=== PATIENT | female | born 1945 | race Caucasian/White ===

== ENCOUNTER 2025-09-28 06:07 | Inpatient (IN) | payer OTHER, SELFPAY ==
[2025-09-17 12:33] LABS: ALT (SGPT) 19 U/L (0-35); AST (SGOT) 21 U/L (14-36); Albumin 3.7 g/dl (3.5-5.0); Alkaline Phosphatase 63 U/L (38-126); Blood Urea Nitrogen 15 mg/dl (7-17); Calcium 8.5 mg/dl (8.4-10.2); Carbon Dioxide 24 mmol/L (22-30); Chloride 103 mmol/L (98-107); Glucose 138 mg/dl (70-99); Potassium 4.7 mmol/L (3.5-5.1); Sodium 133 mmol/L (135-145); Total Protein 6.2 g/dl (6.3-8.2); eGFR > 60.00
[2025-09-17 12:37] LABS: INR 1.26; PT 16.1 Sec (11.4-14.6)
[2025-09-17 13:12] LABS: Hematocrit 31.2 % (37.0-47.0); Hemoglobin 9.2 g/dL (12.0-16.0); Mean Corp Hgb Conc. 29.5 g/dL (33.0-37.0); Mean Corpuscular Volume 77.2 fL (81.0-99.0); Nucleated Red Blood Cells % 0.8 %; Platelet Count 239 10^3/uL (130-400); Red Cell Dist. Width 19.6 % (11.5-14.5)
[2025-09-17 13:47] VITALS: BMI 34.3
[2025-09-28] VITALS (21 sets, daily range): BP systolic 124–170; BP diastolic 54–103; BMI 34.1
[2025-09-28 06:54] LABS: Glucose - Point of Care 78 mg/dl (70-99)
[2025-09-28 09:03] LABS: ACT-LR - POC 221 Seconds (116-155)
[2025-09-28 10:01] LABS: Glucose - Point of Care 123 mg/dl (70-99)
--- NOTE | 2025-09-28 10:10 | WATCHMAN.MD ---
Watchman Implant
-
WATCHMAN LEFT ATRIAL APPENDAGE CLOSURE DEVICE REPORT
Date: September 28, 2025
Referring [employer] Teacher: Dr. Maria G Sun
Primary Care Provider: Dr. Rubin Dozier
History:
Permanent atrial fibrillation s/p multiple PVIs, COTTON FARMWORKER pacemaker, AV phan ablation,diastolic HF, HTN, DM, CVA� 01/2019 and 05/2025, epistaxis on Eliquis requiring hospitalization 11/2024.
She had a CVA in May 2025 with acute/subacute infarction of the right basal ganglia. She was switched from Eliquis to Pradaxa at that time.�
GI bleeds 06/2025 managed at [facility] and anticoagulation regimen switched from Pradaxa to Lovenox.
Given her elevated thromboembolic risk related to atrial fibrillation and risk of recurrent serious GI bleeding as well as epistaxis intolerant of oral anticoagulation regimens and still at high bleeding risk with Lovenox, she presents for left
atrial appendage exclusion to reduce her long-term exposure to oral anticoagulation.
Watchman Team:
BARBIE: Dr. Vasiliy Mckeon M.D.
Implanter: Dr. Rubin Taylor M.D.
Procedure: Watchman left atrial appendage closure.
The patient was placed under general anesthesia by anesthesia.
A BARBIE probe was placed.
Ultrasound Guidance with real-time visualization of needle insertion and vessel patency performed by wa for femoral venous Vascular Access.
Under real-time US guidance, the needle was advanced with negative pressure into the vein. The needle was seen entering the vessel lumen with a good return of dark red flow, the syringe was removed, non-pulsatile, dark red blood low was noted and
the wire was passed without difficulty, then the needle was removed. US confirmed the wire was in the vein, not going into an artery,
Images were taken and saved for the patient's permanent record. Imaging findings typical femoral venous anatomy. Direct visualization of needle puncture into the femoral vein was observed and recorded.
A 10 Fr sheath was placed in the right femoral vein for ICE.
A 10 Czech sheath was initially placed and then upsized to allow access for the 14 Czech watchman sheath
MIKEY type: Chicken wing
Heparin was administered to goal ACT 350-400 seconds. Fluid bolus was given.
Dr Rubin Taylor performed intracardiac echocardiogram and also positioned and deployed the Watchman device.
Intracardiac ultrasound catheter was placed in the right atrium identifying the intraatrial septum for transseptal puncture.
Transseptal puncture entailed advancing a sheath with dilator into the superior vena cava and withdrawing both (monitoring intracardiac ultrasound, fluoroscopy and tip pressure) with the tip oriented toward the atrial septum. The fossa ovalis was
engaged (indicated by sudden displacement of the sheath tip as well as tenting of the fossa seen on intracardiac ultrasound). GoFish transseptal system was used. Left atrial catheter position was confirmed by echocardiographic imaging, pressure
monitoring (LA mean pressure 12 mm Hg) and fluoroscopy. The sheath was advanced over the dilator and positioned in the left atrium.
A 5 Czech curved pigtail was then substituted for the guidewire through the watchman sheath to the ostium of the left atrial appendage. The 5 Czech pigtail was advanced into the left atrial appendage and angiography was performed. This allowed
additional measurements assessing left atrial appendage ostium size and MIKEY morphology.
The pigtail catheter was removed from the access sheath. A 27 mm Watchman device was flushed and then placed into the watchman access sheath and advanced through the sheath. The Watchman was clamped into the sheath. The device was deployed into
the left atrial appendage.
The PASS criteria were met. The stability tug test was performed and passed. Angiography and transesophageal echocardiogram revealed no leaks nor jets. The position was confirmed on angiography and transesophageal echo and there were no
significant shoulders. Compression ranges from 15 % to 22 %.
After meeting the PASS release criteria the device was released into the left atrial appendage.
The watchman access sheath was then removed through the transseptal into the IVC. A figure 8 suture closure was performed at the site of the femoral venous puncture and the sheath as it was removed.
Impression:
- Intracardiac echocardiogram
- Successful Deployment 27 mm WATCHMAN left atrial appendage closure device.
- Ultrasound guidance for vascular access
Recommended anticoagulation strategy for this specific patient is complicated due to prior significant bleeding events with direct oral anticoagulants but ability to tolerate Lovenox.
Will plan to continue Lovenox, assess transesophageal echo in 45 days and if there is no significant NESHA device leak or device related thrombus would then stop Lovenox and initiate DAPT to complete 6 months, then asa 81 mg daily
At post procedure BARBIE leaks > 5mm are significant and require chronic full anticoagulation or consideration for leak closure.
Nesha-device leaks between 3 and 5 mm may also carry an increased risk. These patients will need individualized risk assessment and discussion with Watchman team.
Leaks < 3 mm are generally considered non-significant.
With leak of any size suggestion is to check BARBIE 12 mo out from implant.
While the overall risk of device related infection for Watchman device is very low, we recommend SBE prophylaxis with amoxicillin for the first 6 months after device implantation until the device is more completely endothelialized. After the first
6 months, the risk of infection associated with a device is further reduced and routine antibiotic prophylaxis is not mandatory but can be decided on an individual case basis.
Continue cardiovascular care with Dr. Maria G Sun
cc:
Referring [employer] Teacher: Dr. Maria G Sun
Primary Care Provider: Dr. Rubin Dozier
--- NOTE | 2025-09-28 10:30 | PTCARENOTE ---
pt received post laborer concrete paving for watchman procedure. right groin site with figure eight suture, intact. pulses easily palpable. trace lower extremity edema. pt on room air, sat 97%. lung sound clear, diminished in bases. active bowel sounds, round
obese abdomen. denies urge to void at this time. pt with insulin pump and dexcom in place. pt educated on bedrest at this time. pt updated on plan of care. family brought to bedside. see worklist for full nursing assessment and interventions.
[2025-09-28 11:51] LABS: Glucose - Point of Care 135 mg/dl (70-99)
[2025-09-28] MEDS: PATIENT'S OWN INSULIN PUMP 17.23 UNITS SC (11:51)
[2025-09-28] MEDS: VIBRAMYCIN 200 MG PO (11:52)
[2025-09-28] MEDS: TYLENOL 650 MG PO (11:54)
--- NOTE | 2025-09-28 15:26 | PTCARENOTE ---
pt OOB to chair with 1 assist and rolling walker. ambulated to bathroom to void. right groin site CDI. no changes in assessment noted.
--- NOTE | 2025-09-28 15:40 | CM ---
Chart reviewed. Patient is independent of ADLS, lives with his son and DIl in a 1 STH, 2 PHYLLIS, 0 DME. Plan is for the patient to return home. CM to follow
[2025-09-28 16:42] LABS: Glucose - Point of Care 253 mg/dl (70-99)
[2025-09-28] MEDS: LOVENOX 100 MG SC (16:42)
[2025-09-28] MEDS: PATIENT'S OWN INSULIN PUMP 35 UNITS SC (17:16)
[2025-09-28] MEDS: BENTYL 20 MG PO (18:35)
[2025-09-28] MEDS: PEPCID 40 MG PO (19:30)
[2025-09-28] MEDS: BUSPAR 30 MG PO (19:30)
[2025-09-28] MEDS: COREG 6.25 MG PO (19:30)
[2025-09-28] MEDS: COZAAR 50 MG PO (19:31)
[2025-09-28 19:40] LABS: Glucose - Point of Care 330 mg/dl (70-99)
[2025-09-28 20:41] LABS: Glucose - Point of Care 356 mg/dl (70-99)
[2025-09-28 21:51] LABS: Glucose - Point of Care 318 mg/dl (70-99)
[2025-09-28] MEDS: NOVOLOG FLEXPEN 10 UNITS SC (22:36)
[2025-09-28] MEDS: ARICEPT 10 MG PO (22:36)
[2025-09-28] MEDS: LIPITOR 40 MG PO (22:36)
[2025-09-28] MEDS: XANAX 0.5 MG PO (22:36)
[2025-09-28 22:37] LABS: Glucose - Point of Care 277 mg/dl (70-99)
[2025-09-29 00:21] LABS: Glucose - Point of Care 194 mg/dl (70-99)
--- NOTE | 2025-09-29 03:00 | PTCARENOTE ---
Pt rec'd at change of shift. BP elevated in the 160's, cardiac medications given as ordered. PT AAO*3 (but forgetful at times), VSS, and Vpaced on tele monitor. Pt glucometer reads high, hospital AccuCheck reads as follows 330, 356, and 318. Pt
given updated on potentially having to remove insulin pump and reason. CT PA and house provider given update regard blood surgar elevation. When RN returned to room pt was holding insulin pump that was completely disconnected from pt. Pt educated
to prevent future medical interventions in future, pt verbalized understanding and apologized. DANNY Garcia notified about removed insulin pump and rec'd order for 10 units of insulin via flex pen.
R groin CDI with minimal scant drainage maintained under dressing and only female staff complete groin checks as pt requested. Pt now resting with call ch in reach. See MAR and flowchart for full pt care and assessment.
[2025-09-29 05:16] VITALS: BP 161/89
[2025-09-29 05:17] VITALS: BP 161/89
[2025-09-29] MEDS: LOVENOX 100 MG SC (05:20)
[2025-09-29] MEDS: SYNTHROID 50 MCG PO (05:21)
[2025-09-29 05:50] LABS: Hematocrit 31.0 % (37.0-47.0); Hemoglobin 8.8 g/dL (12.0-16.0); Mean Corp Hgb Conc. 28.4 g/dL (33.0-37.0); Mean Corpuscular Volume 76.5 fL (81.0-99.0); Platelet Count 339 10^3/uL (130-400); Red Cell Dist. Width 20.1 % (11.5-14.5)
[2025-09-29 06:11] LABS: Blood Urea Nitrogen 14 mg/dl (7-17); Calcium 8.9 mg/dl (8.4-10.2); Carbon Dioxide 22 mmol/L (22-30); Chloride 103 mmol/L (98-107); Estimated Creatinine Clearance 73 ml/min; Glucose 150 mg/dl (70-99); Magnesium 2.0 mg/dl (1.6-2.3); Potassium 5.4 mmol/L (3.5-5.1); Sodium 131 mmol/L (135-145); eGFR > 60.00
[2025-09-29 08:04] VITALS: BP 164/83
[2025-09-29 08:54] LABS: Glucose - Point of Care 167 mg/dl (70-99)
[2025-09-29] MEDS: BENTYL 20 MG PO (08:54)
[2025-09-29] MEDS: CYMBALTA DELAYED RELEASE 60 MG PO (08:55)
[2025-09-29] MEDS: COZAAR 50 MG PO (08:55)
[2025-09-29] MEDS: KCL 10 MEQ PO (08:55)
[2025-09-29] MEDS: MAGNESIUM OXIDE 400 MG PO (08:55)
[2025-09-29] MEDS: PEPCID 40 MG PO (08:56)
[2025-09-29] MEDS: PROTONIX 40 MG PO (08:56)
[2025-09-29] MEDS: ZOFRAN 4 MG PO (08:56)
[2025-09-29] MEDS: LASIX 20 MG PO (08:56)
[2025-09-29] MEDS: COREG 6.25 MG PO (08:57)
[2025-09-29] MEDS: BUSPAR 30 MG PO (08:57)
[2025-09-29] MEDS: COLACE 100 MG PO (08:57)
[2025-09-29] MEDS: FARXIGA 10 MG PO (08:57)
[2025-09-29] MEDS: FLUSH (NSS) 1 FLUSH IV (08:58)
--- NOTE | 2025-09-29 09:06 | W.PN.CARDCBS ---
Addendum entered and electronically signed by John Hernandez MD 09/29/25 09:41:
Patient seen and examined
Agree with PRODUCE SORTER note and assessment
Agree with PRODUCE SORTER plan
Exam:
Alert and x 3
Nonfocal neurologically
JVP 6
Right groin clean dry intact without hematoma or bruit
Cor irregularly irregular
Lungs clear to auscultation bilaterally
Abdomen soft nontender positive bowel sounds
No extremity edema
Impression:
Permanent Afib s/p multiple PVI's
AV phan ablation 2019
Chronic HFpEF 55-60%
SSS s/p BiV PPM 2018
CVA 2019 off OAC and 05/2025 on Eliquis switched to Pradaxa
c/b GIB/diverticulitis with perforation requiring resection switched Pradaxa to Lovenox
Partial thyroidectomy 2018 c/b bleeding and epistaxis
Insulin dependent DM on insulin pump
HTN
Anxiety
Plan:
post Watchman device implant 09/28/25
noted intraprocedurally to have tick bite right chest, tick removed under sterile technique.
ID contacted and doxycycline 200mg given per their recommendations, no bulls eye rash noted, will f/u with PCP
OAC Lovenox continue until f/u BARBIE
Insulin pump came off last night, BG 150 this am, will cover with 10u AC, prefers for her son to replace when she gets home
Diastolic HF continue carvedilol 6.25, losartan 50mg, Jardiance, and Lasix
Activity restrictions reviewed
f/u BARBIE 1 mo
continue cardiac care with Dr. Sun
Original Note:
Today's Communication / Plan
-
post Watchman, stable for d/c home
treated with doxycycline for tick bite (L chest)
instructed to f/u PCP if rash develops at site
Insulin pump came off last night, will have family replace at home, SC coverage while in hospital
Impression / Plan
-
Referring Robot Programmer: Dr. Maria G Sun
Primary Care Provider: Dr. Rubin Dozier
Impression:
Permanent Afib s/p multiple PVI's
AV phan ablation 2019
Chronic HFpEF 55-60%
SSS s/p BiV PPM 2018
CVA 2019 off OAC and 05/2025 on Eliquis switched to Pradaxa
c/b GIB/diverticulitis with perforation requiring resection switched Pradaxa to Lovenox
Partial thyroidectomy 2018 c/b bleeding and epistaxis
Insulin dependent DM on insulin pump
HTN
Anxiety
Plan:
post Watchman device implant 09/28/25
noted intraprocedurally to have tick bite right chest, tick removed under sterile technique.
ID contacted and doxycycline 200mg given per their recommendations, no bulls eye rash noted, will f/u with PCP
groin stable
OAC Lovenox continue until f/u BARBIE
Insulin pump came off last night, BG 150 this am, will cover with 10u AC, prefers for her son to replace when she gets home
Diastolic HF continue carvedilol 6.25, losartan 50mg, Jardiance, and Lasix
Activity restrictions reviewed
f/u BARBIE 1 mo
continue cardiac care with Dr. Sun
Progress Note - Robot Programmer
Subjective
Date of Service: September 29, 2025
denies cp, sob
Objective
Labs:
09/29/25 05:30
09/29/25 05:30
Labs
Hgb 8.8 g/dL (12.0-16.0) L 09/29/25 05:30
Hct 31.0 % (37.0-47.0) L 09/29/25 05:30
Plt Count 339 10^3/uL (130-400) 09/29/25 05:30
PT 16.1 Sec (11.4-14.6) H 09/17/25 11:25
INR 1.26 09/17/25 11:25
Sodium 131 mmol/L (135-145) L 09/29/25 05:30
Potassium 5.4 mmol/L (3.5-5.1) H 09/29/25 05:30
BUN 14 mg/dl (7-17) 09/29/25 05:30
Creatinine 0.7 mg/dL (0.6-1.0) 09/29/25 05:30
Glucose 150 mg/dl (70-99) H 09/29/25 05:30
Vital Signs and I&O:
Vital Signs
Temp Pulse Resp BP Pulse Ox
98.8 F 70 20 164/83 99
09/29/25 08:12 09/29/25 08:04 09/29/25 08:12 09/29/25 08:04 09/29/25 08:12
Vital Signs
Temp Pulse Resp BP Pulse Ox
98.8 F 70 20 164/83 99
09/29/25 08:12 09/29/25 08:04 09/29/25 08:12 09/29/25 08:04 09/29/25 08:12
Intake & Output
09/27/25 09/28/25 09/29/25 09/30/25
05:59 06:59 06:59 06:59
Intake Total 1440 / 1440
Balance 1440 / 1440
Physical Exam
Physical Exam
NAD, AOX3
S1, S2, irreg irreg
CTAB, non labored, no wheeze
SNTND bsx4
R groin c/d/i no HT, soft
L chest with small erythematous site with scabbing, no bull's eye rash noted at site
[2025-09-29 09:09] LABS: Glycohemoglobin (HgbA1c) 7.4 % (4.0-5.9)
--- NOTE | 2025-09-29 09:56 | PTCARENOTE ---
Patient assisted oob to the chair this morning. Right groin dressing is dry and intact. Insulin pump was discontinued last night, accu check 167 this morning, will give novolog dose with breakfast as ordered. Call ch in reach, calling for
assistance when getting oob.
[2025-09-29] MEDS: NOVOLOG FLEXPEN 10 UNITS SC (10:10)
[2025-09-29 11:27] VITALS: BP 115/84
--- NOTE | 2025-09-29 11:29 | W.DS.TRANS ---
DC Summary - Web Site Manager
-
Discharge Instructions:
Sleep Apnea Risk High
Discharge Diagnosis/Procedures Watchman device implant
Diet Low Cholesterol,Diabetic, Carb Controlled
Driving Restrictions No driving for 24 hours
Others Tests Follow Up BARBIE is scheduled at [facility] on 11/16/[address] Fernandez. Pre-
admission testing is scheduled for 11/11/2025 at
10am at [facility].
Instructions:
Stand-Alone Forms: DC Instructions- Cath/EP Lab
Changes to Home Medications: No
Discharge Medications:
DC Medications w/original date entered in [facility]
Insulin Pump [Patient's Own Insulin Pump:] 1 unit SC TITRATE Diabetes 11/21/19
atorvastatin 40 mg tablet (Lipitor) 40 mg PO HS High Cholesterol 11/21/19
dicyclomine 10 mg capsule 20 mg PO BID Gastrointestinal Issue 11/21/19
famotidine 40 mg tablet (Pepcid) 40 mg PO BID Gastrointestinal Issue 11/21/19
wkatniqmvfze-rdtymrxz-kynof acid 400 mcg-vitamin K 80 mcg capsule (Multi For Her 50 Plus) 1 ea PO DAILY Supplement 01/01/20
donepezil 10 mg tablet (Aricept) 10 mg PO HS Neurological Condition 04/10/23
magnesium oxide 400 mg PO DAILY Supplement 04/10/23
epinephrine 0.3 mg/0.3 mL injection, auto-injector (EpiPen) 0.3 mg IM ONCE PRN bee 05/10/23
empagliflozin 10 mg tablet (Jardiance) 10 mg PO DAILY Diabetes 05/11/23
potassium chloride 10 mEq tablet,extended release 10 meq PO Q48H Electrolyte Repletion 05/11/23
buspirone 30 mg tablet 30 mg PO BID Depression 05/26/23
levothyroxine 50 mcg tablet 50 mcg PO DAILY@0700 Thyroid 05/26/23
alprazolam 1 mg tablet 0.5 mg (1/2 x 1 mg) PO HS Sleep #3 tabs 06/02/23
diphenoxylate-atropine 2.5 mg-0.025 mg tablet (Lomotil) 1 tab PO PRN PRN diarrhea 08/23/23
acetaminophen 500 mg tablet (Pain Relief Extra Strength (acetaminophen)) 1,000 mg PO PRN PRN Pain 09/16/25
ascorbate calcium (vitamin C) 500 mg tablet 1 g PO DAILY Supplement 09/16/25
carvedilol 6.25 mg tablet (Coreg) 6.25 mg PO BID Heart Disease/Condition 09/16/25
docusate sodium 100 mg capsule (Colace) 100 mg PO DAILY Constipation 09/16/25
duloxetine 60 mg capsule,delayed release 60 mg PO DAILY Mental Health/Anxiety 09/16/25
furosemide 20 mg tablet 20 mg PO Q48H Heart Disease/Condition 09/16/25
hydrocortisone 2.5 % topical cream 1 applic topical PRN PRN Rectal Irritation 09/16/25
insulin lispro 100 unit/mL subcutaneous cartridge (Humalog U-100 Insulin) 1 sliding scale dose SC DIRECTED Pump 09/16/25
losartan 50 mg tablet 50 mg PO BID Heart Disease/Condition 09/16/25
ondansetron HCl 4 mg tablet 4 mg PO DAILY Nausea 09/16/25
pantoprazole 40 mg tablet,delayed release 40 mg PO DAILY Gastrointestinal Issue 09/16/25
polyethylene glycol 3350 17 gram oral powder packet (Miralax) 17 g PO DAILY PRN constipation 09/16/25
enoxaparin 100 mg/mL subcutaneous syringe (Lovenox) 100 mg SC Q12H Blood Clot Prevention/Tx 09/28/25
Home Medication Changes
Pending Results: No
--- NOTE | 2025-09-29 12:55 | PTCARENOTE ---
Reviewed discharge instructions and follow up appointments with the patient's [id number] who she lives with. Patient's son will set her insulin pump for lunch when she comes home and program it. Patient discharged home.
== END 2025-09-29 12:57 | disposition home or self-care (01) | DRG 274 ==
LOC: IVU 06:07
PROVIDERS: Internal Medicine; Nurse Practitioner; ADMITTING PHYSICIAN Internal Medicine Cardiovascular Disease; FAMILY PHYSICIAN Family Medicine
PROC: 02L73DK Occlusion of Left Atrial Appendage with Intraluminal Device, Percutaneous Approach (ICD-10-PCS; 2025-09-28)
PROC: B24BZZ4 Ultrasonography of Heart with Aorta, Transesophageal (ICD-10-PCS; 2025-09-28)
DX: I48.21 Permanent atrial fibrillation (principal); Z00.6 Encounter for examination for normal comparison and control in clinical research program; I50.32 Chronic diastolic (congestive) heart failure; K21.9 Gastro-esophageal reflux disease without esophagitis; M19.90 Unspecified osteoarthritis, unspecified site; M48.00 Spinal stenosis, site unspecified; M79.7 Fibromyalgia; E11.42 Type 2 diabetes mellitus with diabetic polyneuropathy; R26.2 Difficulty in walking, not elsewhere classified; I11.0 Hypertensive heart disease with heart failure; D50.9 Iron deficiency anemia, unspecified; K58.9 Irritable bowel syndrome, unspecified; E78.5 Hyperlipidemia, unspecified; I07.1 Rheumatic tricuspid insufficiency; F32.A Depression, unspecified; F41.9 Anxiety disorder, unspecified; E89.0 Postprocedural hypothyroidism; H40.9 Unspecified glaucoma; G47.00 Insomnia, unspecified; S20.361A Insect bite (nonvenomous) of right front wall of thorax, initial encounter; W57.XXXA Bitten or stung by nonvenomous insect and other nonvenomous arthropods, initial encounter; Y93.9 Activity, unspecified; Y92.9 Unspecified place or not applicable; Z96.41 Presence of insulin pump (external) (internal); Z79.890 Hormone replacement therapy; Z91.81 History of falling; Z87.440 Personal history of urinary (tract) infections; Z79.4 Long term (current) use of insulin; Z95.0 Presence of cardiac pacemaker; Z87.891 Personal history of nicotine dependence; Z79.84 Long term (current) use of oral hypoglycemic drugs; Z86.73 Personal history of transient ischemic attack (TIA), and cerebral infarction without residual deficits; Z79.01 Long term (current) use of anticoagulants; Z86.0101 Personal history of adenomatous and serrated colon polyps; Z87.19 Personal history of other diseases of the digestive system; Z86.19 Personal history of other infectious and parasitic diseases; Z88.1 Allergy status to other antibiotic agents; Z91.030 Bee allergy status; Z91.040 Latex allergy status; Z88.5 Allergy status to narcotic agent; Z88.8 Allergy status to other drugs, medicaments and biological substances; Z91.048 Other nonmedicinal substance allergy status
CPT/HCPCS: 33340; 36415; 80048; 80053; 82962; 83036; 83735; 85025; 85027; 85347; 85610; 86850; 86900; 86901; 87070; 87147; 93005; 93355; C1759; C1769; C1892; C1894; Q9967

== ENCOUNTER 2025-11-16 07:00 | Day surgery (SDC) | payer OTHER, SELFPAY ==
--- NOTE | 2025-11-12 12:17 | HPS.HSE ---
Family Physician
-
Family Physician: Rubin Dozier
Chief Complaint
-
Permanent atrial fibrillation. Watchman implant.
History of Present Illness
The patient is a 80 year old female presenting today with a history of permanent atrial fibrillation. The patient has undergone multiple pulmonary vein isolations and an AV phan ablation secondary to this diagnosis. She is on current
pharmacological therapy with Carvedilol. She does report compliance with Lovenox for current anticoagulation. She has a history of epistaxis and a prior CVA in 2019 while off oral anticoagulation. Of recent, she suffered another CVA in May 2025
while on Eliquis. At that time, she was changed to Pradaxa. While on Pradaxa, she began to notice bright red blood per rectum. She was admitted to [facility] multiple times due to recurrent GI bleeding with a diverticular
perforation, resulting in significant acute blood loss anemia. She received a total of 6 units of packed RBCs as well as IV iron. She was ultimately switched from Pradaxa to Lovenox which she remains on today. In addition, she is noted to have
significant ambulatory dysfunction as a result of her CVAs, osteoarthritis, fibromyalgia, orthostasis and spinal stenosis, all of which put her at an increased risk of falls. She currently ambulates with a rollator. Her [id number] score is 8
secondary to age, gender, heart failure, hypertension, stroke, and diabetes. Her HAS-BLED score is 4 secondary to hypertension, stroke, bleeding, and age. Given her significant risk of stroke as well as bleeding, she did undergo a Watchman implant
on 09/28/2025. She reportedly tolerated this procedure well. She will now undergo a post-Watchman transesophageal echocardiogram to assess the stability of her device. She denies complaints today such as chest pain, palpitations, nausea, vomiting,
diarrhea, lightheadedness, cough, sore throat, or fever. She does report shortness of breath, mostly with exertion, secondary to recent deconditioning and her anemia. She also reports recent, fleeting dizziness associated with her history of
orthostasis.
Medical History
Past Medical History
Past Medical History: Reports Other
Additional Past Medical History:
1. Permanent atrial fibrillation, status post multiple pulmonary vein isolations, AV phan ablation 2019, and Watchman implant 09/2025; pharmacological therapy with Carvedilol and anticoagulation with Lovenox.
2. Hypertension.
3. Hyperlipidemia.
4. Congestive heart failure, preserved ejection fraction.
5. Sick sinus syndrome, status post biventricular ENTERPRISE SOFTWARE ENGINEER pacemaker 2018.
6. Moderate-severe tricuspid regurgitation.
7. Orthostasis.
8. 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
9. GERD.
10. History of H. pylori.
11. Irritable bowel.
12. Colonic polyps.
13. Recurrent GI bleed with recent diverticular perf.
14. CVA, 2018, while off anticoagulation.
15. CVA, 05/2025, with residual deficits while on Eliquis.
16. History of TIAs.
17. Degenerative disc disease with stenosis.
18. Sciatica.
19. Osteoarthritis.
20. Ambulatory dysfunction.
21. Fibromyalgia.
22. Post-surgical hypothyroidism.
23. Iron deficiency anemia.
24. History of ESBL UTIs.
25. Anxiety.
26. Depression.
27. Glaucoma.
28. Insomnia.
29. Previous epistaxis.
30. Obesity, BMI 36.1.
31. History of tobacco abuse.
32. History of alcohol abuse.
Past Surgical History: Reports Other
Additional Past Surgical History:
1. Watchman implant.
2. Multiple pulmonary vein isolations.
3. AV phan ablation.
4. Biventricular ENTERPRISE SOFTWARE ENGINEER pacemaker.
5. Partial thyroidectomy.
6. Sigmoid resection with colostomy and subsequent reversal.
7. Carpal tunnel release.
8. Cataract extraction.
Social History
Tobacco: Former Smoker (She is a former less than 1 pack per day cigarette smoker who quit tobacco altogether at 32 years of age. )
Alcohol: None (Per reports, she has a prior history of alcohol abuse. )
Living: Other (She lives in a ranch style home with her son and daughter in law. )
Family History
Family History: Not pertinent
Allergies / Home Medications
Allergy/Medication List:
HOME MEDICATIONS:
1. Alprazolam 0.5 mg p.o. at bedtime.
2. Lipitor 40 mg p.o. at bedtime.
3. Buspirone 30 mg p.o. twice a day.
4. Coreg 6.25 mg p.o. twice a day.
5. Dicyclomine 20 mg p.o. twice a day.
6. Lomotil one tablet p.o. daily as needed.
7. Aricept 10 mg p.o. at bedtime.
8. Colace 100 mg p.o. daily.
9. Duloxetine 60 mg p.o. daily.
10. Lovenox 100 mg subcutaneous every 12 hours.
11. Pepcid 40 mg p.o. twice a day.
12. Furosemide 20 mg p.o. every other day.
13. Insulin pump indwelling subcutaneous.
14. Jardiance 10 mg p.o. daily.
15. Levothyroxine 50 mcg p.o. daily.
16. Losartan 50 mg p.o. twice a day.
17. Magnesium oxide 400 mg p.o. daily.
18. Ondansetron 4 mg p.o. daily.
19. Pantoprazole 40 mg p.o. daily.
20. MiraLAX 17 gm daily p.o. daily as needed.
21. Potassium chloride 10 mEq p.o. every other day.
22. Acetaminophen 1000 mg p.o. daily as needed.
23. Ascorbic acid 1 gram p.o. daily.
24. EpiPen 0.3 mg intramuscular once as needed.
25. Latanoprost 1 drop ophthalmic every evening.
26. Multivitamin 1 tablet p.o. daily.
ALLERGIES: Adhesive. Bee venom. Cephalosporins. Codeine. Latex. Lorazepam. Zoloft. KETEK. Tramadol. Hydrocodone. Hydromorphone.
Review of Systems
-
A 12 point ROS was completed and negative except as noted: Yes
Physical Exam
Vital Signs
Blood pressure 108/53. Heart rate 73. Respirations 18. Pulse ox 98% on room air.
Height 5 feet, 3.5 inches. Weight 93.9 kg. BMI 36.1.
Physical Exam
General: Well Developed, Well Nourished and No Apparent Distress
HEENT: NormoCephalic, Moist mucous membranes, Atraumatic and PERRLA
Respiratory: Clear
Cardiac: Irregular Rhythm and Other (Pacemaker site intact. )
GI: Soft, Non Tender, Non Distended and Other (Obese. )
Musculoskeletal: No Edema and Other (The patient walks with a rollator. )
Skin: Warm and Dry
Neuro: AO x 3 and Nonfocal/grossly intact
Laboratory Results
-
EKG 11/12/2025: Ventricular paced rhythm.
Transesophageal echocardiogram 09/28/2025: S/p deployment of #27 Watchman device. The PASS criteria were met. The stability tug test was performed and passed. Transesophageal echocardiogram revealed no leaks nor jets. Compression ranges from 15-22
%. Small pericardial effusion was present pre-op and stable post-op. Estimated LVEF 55-60%. Moderate-severe tricuspid regurgitation.
Impression/Plan
-
IMPRESSION/PLAN:
1. Permanent atrial fibrillation and Watchman implant: The patient is in need of a transesophageal echocardiogram with Dr. Adonis Fernandez on 11/16/2025. The benefits and risks of the procedure have been explained to the patient. The patient understands
these risks and wishes to proceed. Should her Watchman implant be well seated and without significant leaks, she will likely be taken off Lovenox and transitioned onto either daily Aspirin and Plavix or Aspirin alone indefinitely. She is aware to
hold her Jardiance 72 hours prior to her BARBIE.
[2025-11-12 12:40] VITALS: BMI 36.1
[2025-11-16 08:10] LABS: Glucose - Point of Care 118 mg/dl (70-99)
== END 2025-11-16 09:49 | disposition home or self-care (01) ==
LOC: CATH 07:00
PROVIDERS: ATTENDING PHYSICIAN Nuclear Medicine Nuclear Cardiology; FAMILY PHYSICIAN Family Medicine; OTHER PHYSICIAN Internal Medicine Cardiovascular Disease
DX: I48.21 Permanent atrial fibrillation (principal); E11.40 Type 2 diabetes mellitus with diabetic neuropathy, unspecified; E66.9 Obesity, unspecified; E78.5 Hyperlipidemia, unspecified; E89.0 Postprocedural hypothyroidism; F32.A Depression, unspecified; F41.9 Anxiety disorder, unspecified; H40.9 Unspecified glaucoma; I08.3 Combined rheumatic disorders of mitral, aortic and tricuspid valves; I11.0 Hypertensive heart disease with heart failure; I50.22 Chronic systolic (congestive) heart failure; Z86.73 Personal history of transient ischemic attack (TIA), and cerebral infarction without residual deficits; I70.0 Atherosclerosis of aorta; K58.9 Irritable bowel syndrome, unspecified; M19.90 Unspecified osteoarthritis, unspecified site; M48.00 Spinal stenosis, site unspecified; M79.7 Fibromyalgia; Z68.36 Body mass index [BMI] 36.0-36.9, adult; Z87.891 Personal history of nicotine dependence; Z79.01 Long term (current) use of anticoagulants; Z79.02 Long term (current) use of antithrombotics/antiplatelets; Z79.4 Long term (current) use of insulin; Z79.82 Long term (current) use of aspirin; Z79.890 Hormone replacement therapy; Z79.899 Other long term (current) drug therapy; Z86.0100 Personal history of colon polyps, unspecified; Z86.19 Personal history of other infectious and parasitic diseases; Z87.440 Personal history of urinary (tract) infections; Z88.1 Allergy status to other antibiotic agents; Z88.5 Allergy status to narcotic agent; Z91.030 Bee allergy status; Z91.040 Latex allergy status; Z91.048 Other nonmedicinal substance allergy status; Z95.0 Presence of cardiac pacemaker; Z98.49 Cataract extraction status, unspecified eye
CPT/HCPCS: 93312; 93320; 93325; 82962; 93005